=== PATIENT | female | born 1975 | race Caucasian/White ===

== ENCOUNTER 2020-11-21 20:27 | Inpatient (IN) | payer OTHER ==
[~2020-11-21] VITALS: Ht 167.6 cm; Wt 134.3 kg
[~2020-11-21 20:27] MED LIST: ACETAZOLAMIDE250 MG PO; ALDACTONE25 MG PO; AUGMENTIN 875-1 EACH PO; BENZONATATE100 MG PO; BREO ELLIPTA 11 EACH INH; BREO ELLIPTA 21 EACH INH; CLARITIN10 MG PO; CYMBALTA 20 MG20 MG PO; CYMBALTA20 MG PO; DIAMOX 250 MG250 MG PO; ELIQUIS5 MG PO; FLONASE ALLER15.8 ML; FUROSEMIDE20 MG PO; FUROSEMIDE40 MG PO; FUROSEMIDE80 MG PO; HABITROL 14 MG P1 EA TD; HUMIBID LA TAB600 MG PO; IBU800 MG PO; IPRAT-ALBUT 0.5-3 ML INH; K-DUR TAB 20 M20 MEQ PO; LASIX40 MG PO; LASIX80 MG PO; LORTAB 7.5-3251 EACH PO; MEDROL4 MG PO; METHYLPREDNISOLO4 M1 PO; NORCO 7.5-3251 EACH PO; OMEPRAZOLE40 MG PO; ROBAXIN-750750 MG PO; ROPINIROLE HCL1 MG PO; SINGULAIR10 MG PO; SYMBICORT 16010.2 GM INH; VENTOLIN HFA 66.7 GM INH; VENTOLIN/PROVE0.5 ML INH
[2020-11-21 21:00] LABS: HEMOGLOBIN 14.5 gm/dl (12.3-15.3); RED BLOOD COUNT 6.44 M/UL (4.00-5.10); WHITE BLOOD COUNT 7.7 K/UL (4.5-11.0)
[2020-11-21 21:28] LABS: BUN/CREATININE RATIO 21 (0-10)
[2020-11-22 05:28] LABS: BORDETELLA PARAPERTUSSIS Not Detected (Not Detectd); BORDETELLA PERTUSSIS Not Detected (Not Detectd); CHLAMYDIA PNEUMONIAE Not Detected (Not Detectd); CORONAVIRUS HKU1 Not Detected (Not Detectd); CORONAVIRUS NL63 Not Detected (Not Detectd); CORONAVIRUS OC43 Not Detected (Not Detectd); CORONOAVIRUS 229E Not Detected (Not Detectd); HUMAN METAPNEUMOVIRUS Not Detected (Not Detectd); HUMAN RHINOVIRUS/ENTEROVIRUS Not Detected (Not Detectd); INFLUENZA A Not Detected (Not Detectd); INFLUENZA B Not Detected (Not Detectd); MYCOPLASMA PNEUMONIAE Not Detected (Not Detectd); PARAINFLUENZA VIRUS 1 Not Detected (Not Detectd); PARAINFLUENZA VIRUS 2 Not Detected (Not Detectd); PARAINFLUENZA VIRUS 3 Not Detected (Not Detectd); PARAINFLUENZA VIRUS 4 Not Detected (Not Detectd); RESPIRATORY SYNCYTIAL VIRUS Not Detected (Not Detectd)
[2020-11-22 06:33] LABS: SARS-CoV-2 NOT DETECTED (Not Detectd)
--- NOTE | 2020-11-22 12:06 | NUR ---
ENCOURAGED PATIENT TO PUT BIPAP BACK ON TO HELP BRING CO2 LEVELS BACK TO BASELINE BUT PATIENT IS REFUSING AT THIS TIME. EDUCATED PATIENT ON BENEFITS OF DOING SO AND SHE IS STILL REFUSING. DR COOPER AWARE AT THIS TIME. PULMONOLOGY AWARE WELL. WILL CONTINUE TO ENCOURAGE PATIENT AND TRY TO GET HER TO PUT BIPAP BACK ON
[2020-11-23 03:01] LABS: BUN/CREATININE RATIO 20 (0-10)
[2020-11-24 03:38] LABS: BUN/CREATININE RATIO 24 (0-10)
[2020-11-25 04:08] LABS: BUN/CREATININE RATIO 31 (0-10)
[2020-11-26 05:45] LABS: BUN/CREATININE RATIO 25 (0-10)
[2020-11-27 02:50] LABS: BUN/CREATININE RATIO 38 (0-10)
[2020-11-28 07:10] LABS: BUN/CREATININE RATIO 36 (0-10)
[2020-11-28] MEDS ORDERED: NICOTINE PATCH1 EAC1 TD (11:09)
[2020-11-28] MEDS ORDERED: NYSTOP60 GM TOP (11:09)
[2020-11-28] MEDS ORDERED: FUROSEMIDE40 MG PO (11:09)
[2020-11-28] MEDS ORDERED: IPRAT-ALBUT 0.5-3 ML NEB (11:09)
[2020-11-28] MEDS ORDERED: ACETAZOLAMIDE250 MG PO (11:09)
[2020-11-28] MEDS ORDERED: DIAMOX 250 MG250 MG PO (14:26)
== END 2020-11-28 16:02 | disposition home or self-care (01) | DRG 291 ==
LOC: ER1 20:27 → CDU 11-22 02:25 → PROG CARE 11-22 02:25 → M/S 11-24 15:57
PROVIDERS: Emergency Medicine; Internal Medicine; ADMIT Internal Medicine
DX: I11.0 Hypertensive heart disease with heart failure (principal); J96.21 Acute and chronic respiratory failure with hypoxia; J96.22 Acute and chronic respiratory failure with hypercapnia; E66.2 Morbid (severe) obesity with alveolar hypoventilation; J98.11 Atelectasis; Z68.42 Body mass index [BMI] 45.0-49.9, adult; I50.33 Acute on chronic diastolic (congestive) heart failure; I27.81 Cor pulmonale (chronic); K21.9 Gastro-esophageal reflux disease without esophagitis; I27.20 Pulmonary hypertension, unspecified; F17.210 Nicotine dependence, cigarettes, uncomplicated; G89.29 Other chronic pain; M54.5 Low back pain; Z20.822 Contact with and (suspected) exposure to COVID-19; J44.9 Chronic obstructive pulmonary disease, unspecified; R91.1 Solitary pulmonary nodule; I07.1 Rheumatic tricuspid insufficiency; Z86.711 Personal history of pulmonary embolism; Z88.6 Allergy status to analgesic agent; Z90.710 Acquired absence of both cervix and uterus; Z83.3 Family history of diabetes mellitus; Z79.899 Other long term (current) drug therapy; Z91.19 Patient's noncompliance with other medical treatment and regimen; Z80.3 Family history of malignant neoplasm of breast
CPT/HCPCS: ECHO; 36415; 36600; 71045; 80048; 80053; 81001; 82550; 82553; 82803; 83874; 83880; 84484; 85025; 85379; 87633; 93005; 93306; 93970; 94640; 94660; 94664; 94760; 96365; 96372; 96375; 97161; 99285; J1120; J1650; J1940; J1956; J2920; Q9967; U0002